=== PATIENT | male | born 1990 | race Hispanic/Latino ===

== ENCOUNTER 2019-01-19 09:49 | Observation (INO) | payer OTHER ==
[2019-01-19] MEDS ORDERED: ISOVUE-370 76%-LOCM 1 ML ONE (10:15)
[2019-01-19] MEDS ORDERED: Ondansetron PF 4 MG/2 ML Vial ONE ×2 (11:00→16:25)
[2019-01-19 11:10] LABS: #Basophils 0.1 thou/uL (0.0-0.2); #Eosinphils 0.1 thou/uL (0.0-0.7); #Lymphocytes 1.6 thou/uL (1.20-3.40); #Monocytes 1.5 thou/uL (0.11-0.59); #Neutrophils 12.6 thou/uL (1.40-6.50); %Basophils 0.3 % (0.0-1.0); %Eosinophils 0.6 % (0.0-10.0); %Lymphocytes 9.9 % (21.0-51.0); %Monocytes 9.4 % (0.0-10.0); %Neutrophils 79.8 % (42.0-75.0); Hemoglobin 14.4 g/dL (14.0-18.0); Mean Corpuscular HGB CONC 33.9 g/dL (32.0-36.0); Mean Corpuscular Hemoglobin 31.5 pg (27.0-31.0); Mean Corpuscular Volume 93.1 fL (78.0-98.0); Mean Platelet Volume 9.1 fL (7.4-10.4); Platelet Count 165 thou/uL (130-400); RBC Distribution Width 12.4 % (11.5-14.5); Red Blood Cell (RBC) Count 4.55 mill/uL (4.70-6.10); White Blood Cell (WBC) Count 15.8 thou/uL (4.8-10.8)
[2019-01-19 11:21] LABS: ALT (SGPT) 10 U/L (8-55); AST (SGOT) 12 U/L (5-34); Albumin 4.1 g/dL (3.5-5.0); Alkaline Phosphatase 95 U/L (40-150); Anion Gap 13 mmol/L (10-20); BUN (Urea Nitrogen) 8 mg/dL (8.9-20.6); Bilirubin, Total 2.1 mg/dL (0.2-1.2); Calc. Creatinine Clearance 0 mL/min (70-130); Carbon Dioxide 26 mmol/L (22-29); Chloride 96 mmol/L (98-107); Estimated GFR-MDRD Greater than 90; Globulin 3.6 g/dL (2.4-3.5); Glucose 93 mg/dL (70-105); Lipase 4 U/L (8-78); Magnesium 1.7 mg/dL (1.6-2.6); Potassium 3.6 mmol/L (3.5-5.1); Protein, Total 7.7 g/dL (6.0-8.3); Sodium 131 mmol/L (136-145)
--- NOTE | 2019-01-19 11:52 | CT ---
CT ABDOMEN AND PELVIS WITH IV CONTRAST: HISTORY: abdominal pain, nausea, vomiting and diarrhea. FINDINGS: There are mild dependent changes in the lung bases. The spleen is enlarged measuring 14 cm in length. The liver, pancreas adrenal glands and kidneys are unremarkable. No calcific gallstones are seen. There is thickening/edema in the gallbladder wall with mild adjacent inflammatory change. No free air, free fluid or lymphadenopathy seen in the abdomen or pelvis. The small bowel loops are n ot abnormally dilated. IMPRESSION: 1. Findings are suspicious for acute cholecystitis. 2. Splenomegaly.
[2019-01-19 12:15] LABS: Bilirubin Negative (Negative); Blood, Urine Negative (Negative); Clarity Clear (Clear); Glucose, Urine (Dipstick) Normal (Negative); Leukocyte Negative Leu/uL (Negative); Nitrite Negative (Negative); Protein, Urine (Dipstick) Negative (Neg-Trace); Urobilinogen 6 mg/dL (Less than 2)
[2019-01-19] MEDS ORDERED: Piperacillin/Tazobactam 4.5 GM VIAL ONE (12:18)
--- NOTE | 2019-01-19 13:14 | ULT ---
ULTRASOUND ABDOMEN LIMITED: (RIGHT UPPER QUADRANT) 01/19/19 HISTORY: 28-year-old male with abdominal pain, nausea, and emesis. FINDINGS: Gallbladder: Distended lumen. Mild mural thickening and mural edema. Cluster of large number of tiny gallstones surrounded by sludge ball. Common duct: 4 mm. Liver: Slightly heterogeneous echogenicity consistent with partial fatty liver. Pancreas: Obscured by shadowing from overlying bowel gas. Right kidney: No hydronephrosis. IMPRESSION: 1. Positive for acute cholecystitis. 2. Positive for cholelithiasis. 3. Hepatic steatosis. JACIEL Alcaraz POS: NAZ
--- NOTE | 2019-01-19 15:28 | HP ---
HISTORY OF PRESENT ILLNESS: Mr. Joshi is a 28-year-old man, an inmate of a correctional facility. The patient presented to emergency department today with 24-hour history of right upper quadrant abdominal pain, which started shortly after dinner consisting of fried eggs. Pain is described as sharp without any radiation. Pain is associated with multiple episodes of nausea, but no emesis. The patient denies any diarrhea. He denies any fevers or chills. PAST MEDICAL HISTORY: Significant for; 1. HIV. 2. Bipolar disorder. 3. Chronic depression. 4. Chronic anxiety disorder. PAST SURGICAL HISTORY: The patient denies any previous surgeries. SOCIAL HISTORY: He is currently an inmate of a correctional facility. He had about 10 pack-year cigarette smoking history. He has not smoked since incarceration. He used to indulge in IV amphetamine. He has not been on any drugs since incarceration. He denies any ethanol abuse. FAMILY HISTORY: He does not know his family medical history. CURRENT MEDICATIONS: Include; 1. Risperdal 1 mg p.o. unknown dosages. 2. Prozac 10 mg p.o. daily. I am unsure as to what he takes for his HIV. ALLERGIES: THE PATIENT DENIES ANY KNOWN DRUG ALLERGIES. REVIEW OF SYSTEMS: Ten-point review of systems is essentially unremarkable except for stated in past medical history and chief complaint. PHYSICAL EXAMINATION: GENERAL: This reveals a 28-year-old normally developed man, who is otherwise coherent, interactive, and appears stated age. The patient is alert and oriented x3, appears to be in no acute distress at time of my evaluation. VITAL SIGNS: Include blood pressure 119/71, pulse 87, respiratory rate is 16, temperature is 99.1 degrees Fahrenheit, oxygen saturation is 98% on room air. HEENT: Pupils are equal, round, reactive to light and accommodation. He has no scleral icterus present. HEART: Reveals regular rate and rhythm. No murmurs or gallops auscultated. LUNGS: Clear to auscultation bilaterally. Breathing, regular and nonlabored. ABDOMEN: Soft with right upper quadrant tenderness to palpation. Liver and spleen otherwise nonpalpable below costal margin. EXTREMITIES: Reveal 2+ radial and pedal pulses bilaterally. NEUROLOGIC: Reveals no focal deficits present. LABORATORY AND DIAGNOSTIC FINDINGS: Today includes a CBC with 15,800 white blood cells, hemoglobin and hematocrit are 14.4 and 42.4 respectively, platelet count is 165,000. Metabolic profile; sodium 131, potassium 3.6, chloride is 96, bicarb is 26, BUN 8, creatinine 0.83, glucose 93. Lactic acid 0.9, magnesium 1.7, total bilirubin is 2.1, AST and ALT are normal at 12 and 10 respectively. Serum lipase is also normal at 4. I have personally reviewed the CT scan of the abdomen and pelvis, which is unremarkable for any intraabdominal pathology except for distended gallbladder with surrounding inflammation. I have also reviewed the abdominal ultrasound, which is remarkable for dilated gallbladder with gallbladder wall thickening and pericholecystic fluid. There is aggregating gallstone in the gallbladder neck. Common bile duct is normal for this patient's age at 4.2-mm in diameter. IMPRESSIONS: 1. Acute cholecystitis with cholelithiasis. 2. History of human immunodeficiency virus. 3. History of chronic bipolar disorder. 4. History of chronic depression and anxiety disorder. RECOMMENDATIONS: 1. Laparoscopic cholecystectomy. 2. I have advised the patient of the above findings and recommendations. I have also informed him of risks and benefits of proposed surgery to include, but not limited to, bleeding, infection, injury to bile duct or surrounding structures. The patient indicates understanding of information given. I have answered his questions. He is going to consent for this admission and surgical intervention. We will obtain consent for surgery through the warden of his correctional facility. Job ID: [id number]
[2019-01-19] MEDS ORDERED: Ondansetron PF 4 MG/2 ML Vial IVP PRN (15:49)
[2019-01-19] MEDS ORDERED: Dextrose 50% Abboject 50 ML SYRINGE SLOW IVP PRN (15:49)
[2019-01-19] MEDS ORDERED: Dextrose 5% in Water 1,000 ML IV PRN (15:49)
[2019-01-19] MEDS ORDERED: Promethazine HCl 25 MG/ML VIAL IM PRN ×2 (15:49→21:38)
[2019-01-19] MEDS ORDERED: Ketorolac Tromethamine 30 MG/ML VIAL IVP PRN (15:52)
[2019-01-19] MEDS ORDERED: Lidocaine 1% PF 5 ML VIAL ONE (16:25)
[2019-01-19] MEDS ORDERED: PROPOFOL 200 MG/20 ML VIAL ONE (16:25)
[2019-01-19] MEDS ORDERED: Ketorolac Tromethamine 30 MG/ML VIAL ONE (16:25)
[2019-01-19] MEDS ORDERED: Rocuronium Bromide 10 MG/ML (10ML VIAL) ONE (16:25)
[2019-01-19] MEDS ORDERED: Glycopyrrolate 0.2 MG/ML 5 ML SYRINGE ONE (16:25)
[2019-01-19] MEDS ORDERED: Bupivacaine/Epinephrine 0.25% 30 ML VIAL ONE (19:01)
[2019-01-19] MEDS ORDERED: Fentanyl 100 MCG/2 ML VIAL ONE ×3 (19:05→22:14)
[2019-01-19] MEDS ORDERED: Midazolam HCl 2 mg/2 ml Vial ONE (19:05)
[2019-01-19] MEDS ORDERED: Ibuprofen 600 MG TAB PO PRN (19:46)
[2019-01-19] MEDS ORDERED: traMADol HCl 50 MG TAB PO PRN ×2 (19:46)
[2019-01-19] MEDS ORDERED: Ondansetron HCl/PF 4 MG/2 ML Vial IVP PRN (21:38)
[2019-01-19] MEDS ORDERED: Promethazine HCl 25 MG/ML VIAL SLOW IVP PRN (21:38)
[2019-01-19] MEDS ORDERED: Promethazine HCl 25 MG/ML VIAL ONE (21:43)
--- NOTE | 2019-01-19 23:04 | PRG ---
DATE OF SERVICE: 01/19/2019 SUBJECTIVE: This is a 28-year-old gentleman, an inmate of a correctional facility. The patient is currently in recovery, postop laparoscopic cholecystectomy. The patient is awake and alert and reports moderate abdominal pain at this time. No nausea or vomiting complaints. OBJECTIVE: VITAL SIGNS: Stable. The patient is afebrile. GENERAL: The patient is awake, alert, in no distress, oriented x3. HEENT: Pupils are equal bilateral. RESPIRATORY: Clear bilateral, breathing is regular and nonlabored. ABDOMEN: Soft, nondistended. IMPRESSION: 1. Postop laparoscopic cholecystectomy for acute cholecystitis with cholelithiasis. 2. History of human immunodeficiency virus. 3. History of chronic bipolar disease. 4. History of chronic depression and anxiety disorder. PLAN: We will place patient in observation on the surgical floor overnight. We will increase diet as tolerated. Supportive care. Possible discharge in am. Job ID: [id number] MTDD
[2019-01-19 23:56] VITALS: BMI 22.1
[2019-01-20] MEDS: Sodium Chloride 0.9% 1,000 ML IV SCH ×5 (00:01→23:53)
[2019-01-20] MEDS: Acetaminophen 500 MG TAB PO SCH ×5 (00:02→23:53)
--- NOTE | 2019-01-20 03:40 | OP ---
DATE OF PROCEDURE: 01/19/2019 PREOPERATIVE DIAGNOSES: Acute cholecystitis, cholelithiasis. POSTOPERATIVE DIAGNOSES: Acute cholecystitis, cholelithiasis. PROCEDURE PERFORMED: Laparoscopic cholecystectomy. ANESTHESIA: General endotracheal. ESTIMATED BLOOD LOSS: 50 mL. FLUIDS GIVEN: 1200 mL crystalloids. COUNTS: Sponge and instrument counts were verified as correct x2. COMPLICATIONS: None apparent at the time of operation. INDICATIONS FOR OPERATION: A 28-year-old man, an inmate of a correctional facility longterm. The patient presented to emergency department at 0036 hours with a postprandial right upper quadrant abdominal pain. Clinical radiographic examination was consistent with acute cholecystitis and cholelithiasis, for which the patient was brought to the operating room for cholecystectomy. Findings are consistent with gallbladder in the usual anatomic location completely encased by omental adhesions. Additional findings included necrotic posterior wall of the gallbladder. DESCRIPTION OF PROCEDURE: Informed consent was obtained from the patient, who was brought to the operating room and placed in supine position. Following general anesthesia, abdomen was sterilely prepped and draped in usual fashion. The skin below the umbilicus was infiltrated with 0.25% Marcaine with epinephrine. A small curvilinear infraumbilical incision was made using an 11 scalpel. Umbilical stalk was grasped with Isabella and elevated. The Veress needle was inserted through the incision and placed in the peritoneal cavity, through which the abdomen was insufflated with 2 L of CO2 gas. Intraabdominal pressure was noted at 2 mmHg. Following abdominal insufflation, Veress needle was removed and a 5 mm trocar was introduced using a Visiport under laparoscopy. Laparoscopy confirmed proper placement of the port. No injuries to the underlying structures. Additional laparoscopy reveals gallbladder in the usual anatomic location completely encased by omental adhesions. Under laparoscopy, 12 mm epigastric and two 5 mm right lateral subcostal ports were placed after the overlying skin was infiltrated with 0.25% Marcaine with epinephrine. Appropriate incision was made. The patient was placed in a reverse Trendelenburg position, rotated to his left. I introduced a [place] dissector with cautery, using this to take down omental adhesions to expose the fundus of the gallbladder. I introduced Prestige grasper through the right lateral subcostal port. I attempted to grasp the fundus of the gallbladder which was quite taut. I decided to decompress the gallbladder. At this juncture, I used an Endo suction catheter with cautery to perform a cholecystotomy at the fundus of the gallbladder, evacuating excess white bile. Prestige grasper was then applied to the fundus, which was elevated cephalad. The cystic duct was carefully dissected free from the surrounding structures at the triangle of Calot. Critical view was obtained. The duct was divided between clips, applying 2 clips proximally and 1 clip at the junction of the cystic duct and gallbladder. Cystic artery was dissected free from the surrounding structures and divided between clips in a similar fashion. The necrotic gallbladder itself was removed from the liver bed and passed off the operative field followed by transmission to Pathology using an EndoCatch. The gallbladder fossa was irrigated with saline. Venous ooze in the gallbladder fossa was readily controlled using Sorin. A #19 Andriy drain was introduced in the subhepatic space and allowed to exit the abdominal cavity through the right subcostal incision. The drain was secured to anterior abdominal wall using 2-0 silk suture. Fascia of the epigastric port was then closed using 0 Vicryl suture and Endoclosure device on the laparoscopy. The abdomen was desufflated. All ports and instruments were removed and accounted for. Skin incisions were closed using 4-0 Monocryl suture in subcuticular fashion. Dermabond was applied over incisional closure. The patient tolerated the operation without any apparent complication and was returned to the recovery room in satisfactory condition. Job ID: [id number]
[2019-01-20 04:44] LABS: #Lymphocytes 1.1 thou/uL (1.20-3.40); #Monocytes 0.8 thou/uL (0.11-0.59); #Neutrophils 8.9 thou/uL (1.40-6.50); %Basophils 0.1 % (0.0-1.0); %Eosinophils 0.4 % (0.0-10.0); %Monocytes 7.5 % (0.0-10.0); Hemoglobin 12.4 g/dL (14.0-18.0); Mean Corpuscular Hemoglobin 32.5 pg (27.0-31.0); Mean Corpuscular Volume 95.7 fL (78.0-98.0); Mean Platelet Volume 8.6 fL (7.4-10.4); Platelet Count 146 thou/uL (130-400); RBC Distribution Width 12.6 % (11.5-14.5); White Blood Cell (WBC) Count 10.9 thou/uL (4.8-10.8)
[2019-01-20 05:07] LABS: ALT (SGPT) 13 U/L (8-55); AST (SGOT) 18 U/L (5-34); Albumin 3.1 g/dL (3.5-5.0); Alkaline Phosphatase 74 U/L (40-150); Anion Gap 10 mmol/L (10-20); BUN (Urea Nitrogen) 6 mg/dL (8.9-20.6); Bilirubin, Direct 0.8 mg/dL (0.1-0.3); Bilirubin, Total 1.7 mg/dL (0.2-1.2); Calc. Creatinine Clearance 135 mL/min (70-130); Calcium 8.5 mg/dL (7.8-10.44); Carbon Dioxide 26 mmol/L (22-29); Chloride 102 mmol/L (98-107); Estimated GFR-MDRD Greater than 90; Glucose 127 mg/dL (70-105); Potassium 3.6 mmol/L (3.5-5.1); Protein, Total 5.9 g/dL (6.0-8.3); Sodium 134 mmol/L (136-145)
[2019-01-20] MEDS ORDERED: diphenhydrAMINE 25 MG CAP PO PRN (08:50)
[2019-01-20] MEDS ORDERED: Pepto Bismol Chew TAB PO PRN (08:50)
[2019-01-20] MEDS: Piperacillin/Tazobactam 3.375 GM in Sodium Chloride 0.9% 100 ML IVPB SCH ×3 (09:37→21:43)
--- NOTE | 2019-01-20 14:56 | PRG ---
DATE OF SERVICE: 01/20/2019 SUBJECTIVE: The patient is hospital day 2, postop day 1, status post laparoscopic cholecystectomy. The patient tolerated the procedure well. He did develop a low-grade fever overnight and this morning with a max temperature of 101.2. Otherwise, the patient is doing well. He is tolerating clear liquid diet and his pain is controlled. OBJECTIVE: VITAL SIGNS: Temperature is 101.2, heart rate 118, respirations 20, oxygen saturation is 96% on room air, blood pressure is 96/51. GENERAL: The patient is resting comfortably in bed. He is awake, alert, and oriented x3. Trace Coma Scale is 15. HEENT: Unremarkable. LUNGS: Clear to auscultation with good inspiratory and expiratory effort. HEART: Regular rate and rhythm. ABDOMEN: Moderately tender without peritoneal signs. EXTREMITIES: Postop dressings are clean, dry, and intact. Extremities are neurovascularly intact x4. LABORATORY FINDINGS: White blood cell count 10.9, hemoglobin 12.4, hematocrit 36.4, platelets 146. Sodium 134, potassium 3.6, chloride 102, CO2 of 26, BUN 6, creatinine 0.84, glucose 127, total bilirubin 1.7, direct bilirubin 0.8, AST 18, ALT 13, alkaline phosphatase 74. There are no radiographs reviewed this morning. ASSESSMENT: Status post laparoscopic cholecystectomy with drain placed. PLAN: Plan will be to repeat labs in the morning. Begin physical and occupational therapy as much as possible in light of the patient being a prisoner. We will advance him to a regular diet and continue his IV antibiotics overnight. The evaluation and examination were done with Dr. Busch this morning during rounds. Job ID: [id number]
[2019-01-20] MEDS ORDERED: FLUoxetine HCl 20 MG CAP PO SCH (21:00)
[2019-01-20] MEDS ORDERED: risperiDONE 3 MG TAB PO SCH (21:00)
--- NOTE | 2019-01-21 00:05 | PRG ---
DATE OF SERVICE: 01/20/2019 SUBJECTIVE: The patient remains on the surgical floor. The patient is postop day #1 status post laparoscopic cholecystectomy. The patient is tolerating a regular diet at this time. The patient voices no complaints at this time. Does report some mild abdominal tenderness at the incision site. The patient did report one episode of diarrhea today. OBJECTIVE: VITAL SIGNS: Stable. The patient remains afebrile this evening. GENERAL: The patient is awake, alert, resting comfortably in bed. The patient is an inmate and has handcuffs and shackles in place. Two guards at bedside. RESPIRATORY: Good inspiratory and expiratory effort, clear bilateral. ABDOMEN: Mild tenderness, soft, active bowel sounds, three abdominal incisions with YOANA drain in place. Incision appeared healthy. YOANA output 80 mL. ASSESSMENT: Status post laparoscopic cholecystectomy with a drain placed. PLAN: Continue supportive care. Advance to regular diet as tolerated. We will continue IV fluids and IV antibiotics overnight. Job ID: [id number]
[2019-01-21] MEDS: Piperacillin/Tazobactam 3.375 GM in Sodium Chloride 0.9% 100 ML IVPB SCH ×3 (03:50→14:52)
[2019-01-21 06:41] LABS: ALT (SGPT) 12 U/L (8-55); AST (SGOT) 12 U/L (5-34); Albumin 2.8 g/dL (3.5-5.0); Alkaline Phosphatase 76 U/L (40-150); Anion Gap 9 mmol/L (10-20); BUN (Urea Nitrogen) 4 mg/dL (8.9-20.6); Bilirubin, Direct 0.5 mg/dL (0.1-0.3); Bilirubin, Total 0.6 mg/dL (0.2-1.2); Calc. Creatinine Clearance 174 mL/min (70-130); Calcium 8.5 mg/dL (7.8-10.44); Carbon Dioxide 24 mmol/L (22-29); Chloride 111 mmol/L (98-107); Estimated GFR-MDRD Greater than 90; Glucose 103 mg/dL (70-105); Potassium 3.3 mmol/L (3.5-5.1); Protein, Total 5.6 g/dL (6.0-8.3); Sodium 141 mmol/L (136-145)
[2019-01-21 06:49] LABS: Band 6 % (5-11); Eosinophils 1 % (0-10); Lymphocytes 30 % (21-51); MDiff Complete? YES; Mean Corpuscular HGB CONC 33.8 g/dL (32.0-36.0); Mean Corpuscular Hemoglobin 32.5 pg (27.0-31.0); Mean Platelet Volume 8.6 fL (7.4-10.4); Monocytes 5 % (0-10); Neutrophil 58 % (42-75); Platelet Count 176 thou/uL (130-400); RBC Distribution Width 12.9 % (11.5-14.5); Red Blood Cell (RBC) Count 3.39 mill/uL (4.70-6.10); White Blood Cell (WBC) Count 6.1 thou/uL (4.8-10.8)
[2019-01-21] MEDS: Acetaminophen 500 MG TAB PO SCH ×2 (06:50→12:25)
[2019-01-21] MEDS ORDERED: Potassium Chloride 20 MEQ TAB PO SCH (07:15)
[2019-01-21] MEDS: Sodium Chloride 0.9% 1,000 ML IV SCH (09:44)
[2019-01-21 16:03] VITALS: BP 108/76; TEMP 98
--- NOTE | 2019-01-21 22:19 | DIS ---
DATE OF ADMISSION: 01/19/2019 DATE OF DISCHARGE: 01/21/2019 ADMISSION DIAGNOSES: 1. Acute cholecystitis with cholelithiasis. 2. History of HIV. 3. History of chronic bipolar disorder. 4. History of chronic depression and anxiety disorder. CONSULTATIONS: None. PROCEDURES PERFORMED: Laparoscopic cholecystectomy with drain placement. SUMMARY: The patient is a 28-year-old man. He is an inmate at one of the [facility] correctional facilities. He presented to the emergency department with a 24-hour history of right upper quadrant pain. He underwent examination, evaluation was noted to have acute cholecystitis with cholelithiasis. He was taken to the operating room, where he underwent his above procedure. He was noted to have a fever postoperatively, which resolved fairly quickly. For 3 additional days, he had received IV antibiotics while in the hospital. The patient will be discharged on Augmentin 875 p.o. b.i.d. x3 days. He will need followup in 1 to 2 weeks to check his laparoscopic sites. He may follow up with Dr. Busch or within the penitentiary system. Job ID: [id number]
== END 2019-01-21 16:20 ==
LOC: ERS 09:49 → SURG B 22:19
PROVIDERS: ADMIT Surgery; ATTEND Surgery
PROC: 0FT44ZZ Resection of Gallbladder, Percutaneous Endoscopic Approach (ICD-10-PCS; principal; 2019-01-21)
DX: K80.00 Calculus of gallbladder with acute cholecystitis without obstruction (principal); F41.9 Anxiety disorder, unspecified; F32.9 Major depressive disorder, single episode, unspecified; Z79.899 Other long term (current) drug therapy; Z87.891 Personal history of nicotine dependence
CPT/HCPCS: 36415; 74177; 76705; 80048; 80053; 80076; 81003; 83605; 83690; 83735; 84484; 85007; 85025; 85027; 87040; 88304; 96361; 96365; 96366; 96375; 96376; G0378; J1885; J2001; J2250; J2405; J2543; J2550; J2704; J3010; J3490; Q9966